=== PATIENT | female | born 1945 | race Caucasian/White ===

== ENCOUNTER 2018-06-04 14:03 | Emergency (ER) | payer MEDICARE, BC ==
[2018-06-04] MEDS ORDERED: Sodium Chloride 0.9% 1,000 ML IV ONE (14:04)
[2018-06-04] MEDS ORDERED: Naloxone 0.4 MG/ML SDV ONE (14:08)
[2018-06-04] MEDS ORDERED: EPINEPHrine 1:10,000 1 MG/10 ML Syringe ONE (14:08)
[2018-06-04] MEDS ORDERED: Atropine 0.1 MG/ML 10 ML Syringe ONE (14:08)
--- NOTE | 2018-06-04 14:39 | EDM.PDOC ---
ED HPI GENERAL MEDICAL PROBLEM - General Stated Complaint: CODE BLUE Time Seen by Provider: 06/04/18 14:03 Source of Information: Reports: EMS, Family History Limitations: Reports: No Limitations - History of Present Illness INITIAL COMMENTS - FREE TEXT/NARRATIVE: Pt. presents to ER via EMS as a code blue. Pt. came home from work over lunch ( around noon) and was found unresponsive in her chair by her granddaughter. states that the patient was complaining of "indigestion" last evening- apparently some burning chest discomfort. 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 She did not complain of any shortness of breath. It was unclear how long the patient was without a pulse. Law enforcement moved the patient to the floor and started CPR shortly before the arrival of EMS. EMS found the patient apneic and asystolic during the duration of her attempted resuscitation. She was intubated, and IO was placed, and she received a total of 4 doses of epinephrine and an amp of sodium bicarb in the field. Onset: Today Onset Date: 06/04/18 - Related Data Allergies Allergy/AdvReac Type Severity Reaction Status Date / Time No Known Allergies Allergy Verified 09/05/13 14:55 Home Meds: Home Meds Aspirin 325 mg PO DAILY 09/05/13 [History] Famotidine/Ca Carb/Mag Hydrox [Pepcid Complete Tablet Chew] 1 each PO DAILY PRN 09/05/13 [History] LORazepam [Ativan] 0.5 mg PO BID PRN 09/05/13 [History] Lisinopril [Zestril] 5 mg PO DAILY 09/05/13 [History] Metoprolol Tartrate 50 mg PO BID 09/05/13 [History] Moxifloxacin [Vigamox 0.5% Ophth Soln] 1 - 2 drop EYERT TID 09/05/13 [History] Nepafenac [Nevanac] 1 drop EYERT TID 09/05/13 [History] PEG 400/Propylene Glycol [Systane 0.4-0.3%] 1 drop EYELF PRN 09/05/13 [History] Simvastatin [Zocor] 10 mg PO BEDTIME 09/05/13 [History] prednisoLONE acetate [Pred Forte 1% Ophth Susp] 1 drop EYERT TID 09/05/13 [ History] busPIRone HCl [busPIRone] 7.5 mg PO DAILY 09/17/13 [History] busPIRone HCl [busPIRone] 15 mg PO DAILY 09/17/13 [History] ED ROS GENERAL - Review of Systems Review Of Systems: Unable To Obtain ED EXAM, GENERAL - Physical Exam Exam: See Below Exam Limited By: Altered Mental Status General Appearance: Other (unresponsive) Eye Exam: Bilateral Eye: Other (fixed and dilated) Throat/Mouth: No Airway Compromise, Other (intubated. ET tube 26 at the teeth) Head: Atraumatic Neck: Normal Inspection Respiratory/Chest: Other (absent. Andres red blood in ER tube.) Cardiovascular: Other (absent) Peripheral Pulses: 0: Carotid (R), Femoral (R) GI/Abdominal: Soft, No Distention, No Mass (Female) Exam: Deferred Rectal (Female) Exam: Deferred Extremities: Mottled, Pallor Neurological: Other (unresponsive) Skin Exam: Mottled, Pallor Course - Orders/Labs/Meds Orders: Active Orders 24 hr Category Date Time Status D-DIMER QUANTITATIVE [COAG] Routine Lab 06/04/18 14:06 Received INR,PT,PROTHROMBIN TIME [COAG] Routine Lab 06/04/18 14:06 Received Labs: Laboratory Tests 06/04/18 06/04/18 06/04/18 Range/Units 14:06 14:14 14:17 WBC 10.2 H (4.0-10.0) x10^3/uL RBC 3.12 L (4.00-5.50) x10^6/uL Hgb 9.5 L (12.0-16.0) g/dL Hct 31.4 L (33.0-47.0) % MCV 100.6 H (78.0-93.0) fL MCH 30.4 (26.0-32.0) pg MCHC 30.3 L (32.0-36.0) g/dL RDW Coeff of Louis 13.2 (10.0-15.0) % Plt Count 252 (130-400) x10^3/uL Add Manual Diff Yes Neutrophils % (Manual) 47 L (50-80) % Band Neutrophils % 2 (0-6) % Lymphocytes % (Manual) 46 (25-50) % Monocytes % (Manual) 4 (2-11) % Eosinophils % (Manual) 1 (0-4) % Platelet Estimate Adequate Anisocytosis 1+ slight H POC Sodium 143 (138-146) mmol/L POC Potassium 6.0 H (3.5-4.9) mmol/L POC Chloride 102 (98-109) mmol/L POC Total CO2 25 (24-29) mmol/L POC Anion Gap 23 POC BUN 15 (8-26) mg/dL POC Creatinine 1.5 H (0.6-1.3) mg/dL POC Glucose 79 (70-105) mg/dL POC Troponin I 2.03 H* (0.00-0.08) ng/mL POC Result Comm Departure - Departure Time of Disposition: 14:13 Disposition: 20 Clinical Impression: Cardiopulmonary arrest - Discharge Information - Problem List Review Problem List Initiated/Reviewed/Updated: Yes - My Orders Last 24 Hours: My Active Orders 06/04/18 14:06 D-DIMER QUANTITATIVE [COAG] Routine INR,PT,PROTHROMBIN TIME [COAG] Routine - Assessment/Plan Last 24 Hours: My Active Orders 06/04/18 14:06 D-DIMER QUANTITATIVE [COAG] Routine INR,PT,PROTHROMBIN TIME [COAG] Routine Plan: CPR was continued with Daron device. Tube placement was confirmed with ausculation of all lung reid with no air entry into the epigastrium. ETCO2 on arrival was 10. Pupils fixed and dilated at 4 mm. Pt. was given 1 mg atropine and 0.4mg narcan. Spoke with family. Resuscitation was stopped at 1413. Pt. had a prolonged arrest interval and was not responding to resusciation. Skin was acute quite mottled on arrival and may have been without a pulse for some time on scene. Conferred with Dr. Irizarry who deferred autopsy.
== END 2018-06-04 14:13 | disposition expired ==
LOC: VM.ED 14:03
DX: I46.9 Cardiac arrest, cause unspecified (principal); Z79.82 Long term (current) use of aspirin; Z79.899 Other long term (current) drug therapy
CPT/HCPCS: 36415; 80047; 84484; 85025; 85379; 85610; 92950; 96374; 96375; 99284-GF; 99285-25; J0171; J0461; J2310; J7030